=== PATIENT | female | born 1990 | race Caucasian/White ===

== ENCOUNTER 2019-08-14 17:05 | Emergency (ER) | payer OTHER ==
[~2019-08-14] VITALS: Ht 177.8 cm; Wt 63.5 kg
[2019-08-14] MEDS ORDERED: NEURONTIN 400M400 M2 PO (17:22)
[2019-08-14] MEDS ORDERED: SEROQUEL 25 MG25 M1 PO (17:23)
[2019-08-14] MEDS ORDERED: DOXYCYCLINE 10100 MG PO (18:55)
[2019-08-14 19:27] VITALS: BP 128/90
== END 2019-08-14 19:27 | disposition home or self-care (01) ==
LOC: M.ERS 17:05
DX: L02.414 Cutaneous abscess of left upper limb (principal); L03.116 Cellulitis of left lower limb; F41.9 Anxiety disorder, unspecified; M79.7 Fibromyalgia; Z88.1 Allergy status to other antibiotic agents; Z88.8 Allergy status to other drugs, medicaments and biological substances